=== PATIENT | female | born 1945 | race Caucasian/White ===

== ENCOUNTER 2020-05-17 19:10 | Inpatient (IN) | payer MEDICARE ==
[~2020-05-17] VITALS: Ht 152.4 cm; Wt 43.1 kg
[2020-05-17 21:55] VITALS: BP 163/83
[2020-05-17] MEDS ORDERED: AMLO5TAB9 PO (22:08)
[2020-05-17] MEDS ORDERED: GEMF600T5 PO (22:08)
[2020-05-17] MEDS ORDERED: AMIT50TA3 PO (22:09)
[2020-05-17] MEDS ORDERED: INSU100I30 SQ (22:11)
[2020-05-17] MEDS ORDERED: MAG HYDROX/AL HYDROX/SIMETH 30 ML UDC PO PRN (22:30)
[2020-05-17] MEDS ORDERED: TEMAZEPAM 7.5 MG CAPSULE PO PRN (22:30)
[2020-05-17] MEDS ORDERED: LORAZEPAM 0.5 MG TABLET PO PRN (22:30)
[2020-05-17] MEDS ORDERED: MAGNESIUM HYDROXIDE 30 ML UDC PO PRN (22:30)
[2020-05-17] MEDS ORDERED: ACETAMINOPHEN 325 MG TABLET PO PRN (22:30)
--- NOTE | 2020-05-17 22:30 | NUR ---
GPS RN NOTE: SON NOTIFIED CALLED MCKAYLA AT [phone] & NOTIFIED ABOUT HIS MOTHER WILMER MEI'S ADMISSION TO [facility], [facility] & DISCUSSED ABOUT HER HOME MEDS & VACCINES WITH MCKAYLA.
--- NOTE | 2020-05-17 22:40 | NUR ---
GPS RN NOTE: REFUSED FLU & PNEUMO VACCINE DISCUSSED WITH PT'S SON MCAKYLA IF PT RECEIVED FLU & PNEUMONIA VACCINE RECENTLY OR IN THE PAST, MCKAYLA WAS NOT SURE & STATED SHE MIGHT BE DUE FOR BOTH VACCINES. DISCUSSED WITH THE PATIENT AFTER TALKING TO HER SON, PATIENT WAS NOT SURE IF SHE RECEIVED IT OR NOT IN THE PAST WELL & THEN SHE DECIDED TO CHECK WITH HER PRIMARY DOCTOR & RECEIVE BOTH VACCINES AT HER PRIMARY DOCTOR'S CLINIC ONCE DISCHARGED FROM [facility]. WILL ENDORSE TO THE NURSE IN AM.
[2020-05-17 22:50] VITALS: BP 135/75
[2020-05-17] MEDS ORDERED: hydrALAZINE HCL 25 MG TABLET PO PRN (23:00)
[2020-05-17] MEDS ORDERED: DEXTROSE 50%-WATER 50 ML DISP.SYRIN IV PRN (23:00)
[2020-05-17] MEDS ORDERED: BLOOD SUGAR DIAGNOSTIC 1 EACH STRIP IN ONE (23:00)
--- NOTE | 2020-05-17 23:00 | NUR ---
GPS RN-NOTE: ADMISSION ADMITTED A 74 YR OLD FEMALE, FROM [facility] TO [facility]. PER 5150 HOLD, PATIENT WAS DELUSIONAL, DISORIENTED & REPORTED THAT SHE DOES NOT WANT TO LIVE. PATIENT ALSO BELIEVE PEOPLE IN THE HOUSE DON'T WANT HER TO LIVE & IS POISONING HER BY GIVING HER SWEETS. PT. STATED SHE WANTED TO BANG HER HEAD INTO WALL, PMRT WAS UNABLE TO SAFETY PLAN WITH THE PATIENT. UPON FACE TO FACE ASSESSMENT, PT. IS A & O X 2, CONFUSED, FORGETFUL, DISORIENTED, DISHEVELED, POOR HYGIENE, FLAT AFFECT, PARANOID, DELUSIONAL, PRESSURED SPEECH BUT CLAM & RELAXED. DENIES SI/HI/AVH AT THIS TIME, STATED," LIFE IS A GIFT EVERYDAY." PATIENT STATED THAT HER WANTED TO KILL HER BY POISONING HER & HID NON SKID HER SHOES. REDIRECTABLE AT THIS TIME. ALL NEEDS MET. SKIN ASSESSMENT DONE, PICTURES TAKEN & PLACED IN CHART. CONTINENT. AMBULATORY WITH 1 PERSON ASSIST ONLY, UNSTEADY GAIT, HIGH FALL RISK. PT ORDERED. MED RECON DONE BY DR. CAMPBELL. PT'S RIGHTS HANDBOOK AND A GUIDE TO PRESCRIPTION MEDICATIONS GIVEN. IN NO APPARENT DISTRESS. BELONGINGS WERE INVENTORIED AND CHECKED FOR CONTRABAND. PT. IS UNDER CARE OF PSYCHIATRIC DR. JORDAN AND THE MEDICAL CARE OF DR. WINSTON. BED LOCKED AND PLACED IN LOWEST POSITION TO MAINTAIN SAFETY. BED ALARM ON. FALL PRECAUTIONS IMPLEMENTED. WILL CONTINUE TO MONITOR Q15 MINS. FOR SAFETY AND BEHAVIOR. Addendum: 05/18/20 at 0224 by RENE MARADIAGA RN PATIENT IS UNDER CARE OF DR. CAMPBELL, NOT DR. SLAUGHTER.
[2020-05-17] MEDS: AMLODIPINE BESYLATE 5 MG TABLET PO SCH (23:21)
[2020-05-17] MEDS: BLOOD SUGAR DIAGNOSTIC 1 EACH STRIP IN SCH (23:22)
--- NOTE | 2020-05-17 23:30 | NUR ---
GPS RN NOTE: MD NOTIFIED CHARGE NURSE CALLED DR. CAMPBELL & NOTIFIED ABOUT NEW ADMISSION WILMER MEI IN ROOM 220-1 & REQUESTED MD TO RECONCILE HER HOME MEDS.
[2020-05-17] MEDS: INSULIN REGULAR, HUMAN 100 UNIT/ML 3 ML VIAL SQ PRN (23:33)
--- NOTE | 2020-05-17 23:45 | NUR ---
GPS RN NOTE DR. CAMPBELL RECONCILED PATIENT'S MEDS & PLACED ORDERS FOR AM LABS, CXR & EKG.
--- NOTE | 2020-05-18 02:24 | NUR ---
GPS RN NOTE PATIENT SEEN BY DR. CAMPBELL AT [facility].
--- NOTE | 2020-05-18 06:07 | NUR ---
GPS RN NOTE PATIENT SLEPT WELL AT NIGHT AFTER ADMITTING TO [facility]. COOPERATIVE, CALM, QUIET, ISOLATIVE, NO BEHAVIOR CHANGES NOTED. WILL CONTINUE TO MONITOR.
--- NOTE | 2020-05-18 06:15 | NUR ---
GPS RN NOTE: EKG RESULTED PATIENT'S EKG SHOWS NORMAL SINUS RHYTHM, NOTIFIED DR. CAMPBELL, NO NEW ORDERS AT THIS TIME.
--- NOTE | 2020-05-18 06:30 | NUR ---
CALLED RADIOLOGY FOR STAT CXR, SOFTWARE QUALITY ASSURANCE SPECIALIST ANGEL SAID SOMEONE WILL COME TO DO THE CXR. WILL ENDORSE TO AM RN TO F/U. DR. CAMPBELL WAS NOTIFIED.
[2020-05-18 06:31] LABS: BASOPHILS # (AUTO) 0.1 /CMM (0.0-0.2); BASOPHILS % (AUTO) 1.3 % (0.0-2.0); EOSINOPHILS % (AUTO) 1.2 % (0.0-6.0); HEMATOCRIT 46 % (33-45); HEMOGLOBIN 15.3 g/dL (11.5-14.8); LYMPHOCYTES # (AUTO) 1.8 /CMM (0.8-4.8); LYMPHOCYTES % (AUTO) 22.8 % (20.0-44.0); MEAN CORPUSCULAR HGB CONC 33 g/dl (31.0-36.0); MEAN CORPUSCULAR VOLUME 91 fL (82-100); MONOCYTES # (AUTO) 0.4 /CMM (0.1-1.30); MONOCYTES % (AUTO) 5.3 % (2.0-12.0); NEUTROPHILS # (AUTO) 5.5 /CMM (1.8-8.9); NEUTROPHILS % (AUTO) 69.4 % (43.0-81.0); PLATELET COUNT (AUTO) 431 /CMM (150-450); RED BLOOD CELL COUNT(AUTO) 5.07 MIL/uL (4.0-5.2); WHITE BLOOD COUNT (AUTO) 7.9 K/uL (4.3-11.0)
[2020-05-18 06:56] LABS: CHOLESTEROL 188 mg/dL (<200); HDL CHOLESTEROL 34 mg/dL (40-60); LDL 107 mg/dL (0-99); THYROID STIMULATING HORMONE 0.491 uIU/mL (0.358-3.74); TRIGLYCERIDES 210 mg/dL (30-150)
[2020-05-18 07:00] LABS: ALANINE AMINOTRANSFERASE 19 U/L (12-78); ALBUMIN 3.3 g/dL (3.4-5.0); ALKALINE PHOSPHATASE 93 U/L (46-116); ASPARTATE AMINOTRANSFERASE 16 U/L (15-37); B-TYPE NATRIURETIC PEPTIDE 20 PG/ML (0-125); BILIRUBIN,TOTAL 0.4 mg/dL (0.2-1.0); CALCIUM, SERUM 9.1 mg/dL (8.5-10.1); CARBON DIOXIDE 27 mmol/L (21-32); CHLORIDE 103 mmol/L (98-107); CREATININE 0.7 mg/dL (0.6-1.3); GLUCOSE 249 mg/dL (74-106); MAGNESIUM 2.3 mg/dL (1.8-2.4); PHOSPHORUS 3.4 mg/dL (2.5-4.9); POTASSIUM 3.6 mmol/L (3.5-5.1); SODIUM SERUM 140 mmol/L (136-145); TOTAL PROTEIN, SERUM 7.3 g/dL (6.4-8.2); UREA NITROGEN, BLOOD 17 mg/dL (7-18)
[2020-05-18] MEDS: BLOOD SUGAR DIAGNOSTIC 1 EACH STRIP IN SCH ×4 (07:32→22:51)
[2020-05-18 08:11] VITALS: BP 140/82
[2020-05-18] MEDS: INSULIN REGULAR, HUMAN 100 UNIT/ML 3 ML VIAL SQ PRN ×3 (08:23→22:44)
[2020-05-18] MEDS: AMLODIPINE BESYLATE 5 MG TABLET PO SCH ×2 (08:24→22:43)
[2020-05-18] MEDS: LISINOPRIL (5MG) 5 MG TABLET PO SCH (09:13)
[2020-05-18] MEDS: ASPIRIN EC 81 MG TABLET.DR PO SCH (09:14)
--- NOTE | 2020-05-18 11:30 | NUR ---
Family Contact: DOUG called the pts son, Chuck ([phone]), and informed him about the process of being placed on a hold and the possible events that can take place after. DOUG went over a 14 day hold and then assisted with answering questions about [facility] facility placement and assisted living placements. DOUG stated that for this pt that a SNF would be the recommendation before assisted living. Pts son stated that he would like to have placement in [place] is possible so DOUG recommended [facility] [place]. DOUG stated that DOUG will follow up.
--- NOTE | 2020-05-18 12:08 | NUR ---
Initial Discharge Plan: Pt currently resides in her home with her located at [address] [place] [address]. Per pts son, Chuck ([phone]), pt cannot reside back in the home and needs SNF placement. SW will work with the pt, pts son, and the MD regarding appropriate discharge planning. SW will form a safe and proper discharge.
[2020-05-18 16:00] VITALS: BP 139/82
[2020-05-18 19:58] VITALS: BP 128/62
[2020-05-18 21:08] LABS: APPEARANCE,URINE CLEAR (CLEAR); BILIRUBIN,URINE NEGATIVE (NEGATIVE); BLOOD, URINE NEGATIVE Ery/uL (NEGATIVE); COLOR,URINE YELLOW (YELLOW); LEUKOCYTE ESTERASE ,URINE NEGATIVE (NEGATIVE); NITRITE, URINE NEGATIVE (NEGATIVE); PROTEIN,URINE NEGATIVE (NEGATIVE); UGLUCOSE >=1000 mg/dL (NEGATIVE); UROBILINOGEN,URINE 0.2 EU/dL (0.2)
[2020-05-18] MEDS ORDERED: INSULIN GLARGINE, 100 UNIT/ML CARTRIDGE SQ SCH (22:00)
--- NOTE | 2020-05-18 22:05 | NUR ---
GPS/RN DR. JORDAN WAS AT BEDSIDE TALKING TO THE PATIENT.
[2020-05-18] MEDS: ATORVASTATIN 10 MG TABLET PO SCH (22:42)
[2020-05-18] MEDS: INSULIN GLARGINE, 100 UNIT/ML CARTRIDGE SQ SCH (22:48)
--- NOTE | 2020-05-18 23:00 | NUR ---
GPS/RN SNACK WAS GIVEN.
[2020-05-19] MEDS: BLOOD SUGAR DIAGNOSTIC 1 EACH STRIP IN SCH ×4 (07:46→22:21)
[2020-05-19 08:00] VITALS: BP 137/81
[2020-05-19] MEDS: risperiDONE 0.25 MG TABLET PO SCH ×2 (09:06→17:03)
[2020-05-19] MEDS: AMLODIPINE BESYLATE 5 MG TABLET PO SCH ×2 (09:07→21:37)
[2020-05-19] MEDS: ASPIRIN EC 81 MG TABLET.DR PO SCH (09:07)
[2020-05-19] MEDS: LISINOPRIL (5MG) 5 MG TABLET PO SCH (09:07)
[2020-05-19] MEDS: INSULIN REGULAR, HUMAN 100 UNIT/ML 3 ML VIAL SQ PRN ×4 (09:12→22:34)
[2020-05-19 16:00] VITALS: BP 116/64
[2020-05-19 21:03] VITALS: BP 119/82
[2020-05-19] MEDS: ATORVASTATIN 10 MG TABLET PO SCH (21:36)
[2020-05-19] MEDS: INSULIN GLARGINE, 100 UNIT/ML CARTRIDGE SQ SCH (22:33)
--- NOTE | 2020-05-20 07:04 | NUR ---
GPS RN CLOSING NOTES: PT LAYING ON BED AWAKE AND ALERT. SLEPT 9HR THIS SHIFT. MED COMPLIANT THIS, NO BEHAVIORAL ISSUES. NO S/S OF DISTRESS. RESPIRATION EVEN AND UNLABORED WITH EQUAL RISE AND FALL OF THE CHEST ON ROOM AIR. ALL PT CARE NEEDS MET ANTICIPATED. BED IS LOCKED AND IN LOWEST POSITION. WILL CONTINUE TO MONITOR AND ENDORSE TO AM SHIFT.
[2020-05-20] MEDS: BLOOD SUGAR DIAGNOSTIC 1 EACH STRIP IN SCH ×4 (07:39→22:25)
[2020-05-20] MEDS: INSULIN REGULAR, HUMAN 100 UNIT/ML 3 ML VIAL SQ PRN ×4 (07:42→22:35)
[2020-05-20 08:00] VITALS: BP 141/80
[2020-05-20] MEDS: risperiDONE 0.25 MG TABLET PO SCH ×2 (09:04→16:52)
[2020-05-20] MEDS: ASPIRIN EC 81 MG TABLET.DR PO SCH (09:05)
[2020-05-20] MEDS: AMLODIPINE BESYLATE 5 MG TABLET PO SCH ×2 (09:05→21:42)
[2020-05-20] MEDS: LISINOPRIL (5MG) 5 MG TABLET PO SCH (09:05)
[2020-05-20 16:00] VITALS: BP 130/77
[2020-05-20 20:26] VITALS: BP 129/76
[2020-05-20] MEDS: ATORVASTATIN 10 MG TABLET PO SCH (21:43)
[2020-05-20] MEDS: INSULIN GLARGINE, 100 UNIT/ML CARTRIDGE SQ SCH (22:34)
--- NOTE | 2020-05-21 06:25 | NUR ---
GPS RN CLOSING NOTES: PT LAYING ON BED AWAKE A/O X2. WEEKLY SKIN ASSESSMENT DONE, PICTURES TAKEN PLACED IN PATIENT CHART. PT WAS MED COMPLIANT THIS SHIFT. SLEPT 9HR THIS SHIFT. NO S/S OF DISTRESS. RESPIRATION EVEN AND UNLABORED WITH EQUAL RISE AND FALL OF THE CHEST ON ROOM AIR. ALL PT CARE NEEDS MET ANTICIPATED. BED IS LOCKED AND IN LOWEST POSITION. WILL CONTINUE TO MONITOR AND ENDORSE TO AM SHIFT.
[2020-05-21] MEDS: BLOOD SUGAR DIAGNOSTIC 1 EACH STRIP IN SCH (07:29)
[2020-05-21 08:00] VITALS: BP 147/85
[2020-05-21] MEDS: ASPIRIN EC 81 MG TABLET.DR PO SCH (08:11)
[2020-05-21] MEDS: risperiDONE 0.25 MG TABLET PO SCH ×2 (08:11→16:21)
[2020-05-21] MEDS: AMLODIPINE BESYLATE 5 MG TABLET PO SCH ×2 (08:11→20:08)
[2020-05-21] MEDS: LISINOPRIL (5MG) 5 MG TABLET PO SCH (08:11)
--- NOTE | 2020-05-21 09:05 | NUR ---
DOUG Coordination of Care: This senior mortgage underwriter sent clinicals to admin Agapito (F:[phone]) to [facility] for review.
[2020-05-21] MEDS ORDERED: DEXTROSE 50%-WATER 50 ML DISP.SYRIN IV PRN (11:00)
[2020-05-21] MEDS: INSULIN REGULAR, HUMAN 100 UNIT/ML 3 ML VIAL SQ PRN ×2 (11:34→16:43)
[2020-05-21] MEDS: GLUCERNA SHAKE 237 ML CAN PO SCH (11:35)
[2020-05-21] MEDS: BLOOD SUGAR DIAGNOSTIC 1 EACH STRIP VI SCH ×3 (11:35→22:05)
--- NOTE | 2020-05-21 13:01 | NUR ---
DOUG Initial Discharge Plan: This telegraphic typewriter operator sent clinicals to admin Adia (F:[phone]) from [facility] stated they will accept pt.
--- NOTE | 2020-05-21 15:05 | NUR ---
Individual Intervention: This tag writer met with pt for brief counseling. Pt appeared alert and oriented x2. Pt appeared with euthymic mood. Pt appeared paranoid and delusional. She stated upon admission, pt's "wanted to kill her". Pt is fixated on her wanting to kill her. This tag writer redirected pt and helped pt display a calmer demeanor. This tag writer oriented pt back to reality.
[2020-05-21 16:00] VITALS: BP 146/81
[2020-05-21 20:05] VITALS: BP 120/71
[2020-05-21] MEDS: ATORVASTATIN 10 MG TABLET PO SCH (21:58)
[2020-05-21] MEDS: INSULIN GLARGINE, 100 UNIT/ML CARTRIDGE SQ SCH (22:03)
[2020-05-21] MEDS: *INSULIN REGULAR(HUMULIN R)HUM 100 UNIT/ML VIAL SQ PRN (22:13)
--- NOTE | 2020-05-22 07:30 | NUR ---
GPS RN NOTE PATIENT IN BED RESTING COMFORTABLY. PATIENT IN NO ACUTE DISTRESS. NO SOB NOTED. PATIENT BREATHING IS EVEN AND UNLABORED. SAFETY PRECAUTIONS IN PLACE. PATIENT BED IS LOCKED AND IN LOWEST POSITION. BED ALARM IS ON. WILL CONTINUE TO MONITOR.
[2020-05-22] MEDS: BLOOD SUGAR DIAGNOSTIC 1 EACH STRIP VI SCH ×4 (07:45→21:33)
[2020-05-22 08:00] VITALS: BP 150/78
[2020-05-22] MEDS: ASPIRIN EC 81 MG TABLET.DR PO SCH (08:32)
[2020-05-22] MEDS: INSULIN REGULAR, HUMAN 100 UNIT/ML 3 ML VIAL SQ PRN ×3 (08:32→16:36)
[2020-05-22] MEDS: risperiDONE 0.25 MG TABLET PO SCH ×2 (08:33→16:34)
[2020-05-22] MEDS: AMLODIPINE BESYLATE 5 MG TABLET PO SCH ×2 (08:33→21:27)
[2020-05-22] MEDS: LISINOPRIL (5MG) 5 MG TABLET PO SCH (08:33)
[2020-05-22] MEDS: GLUCERNA SHAKE 237 ML CAN PO SCH (08:37)
--- NOTE | 2020-05-22 12:07 | NUR ---
DOUG Family Contact: DOUG called the pts son, Chuck ([phone]) and stated pt is accepted at [facility]. He is aware and agreeable with facility.
--- NOTE | 2020-05-22 12:18 | NUR ---
PROBABLE CAUSE HEARING: Patient probable cause hearing was today and it was upheld for grave disability.
[2020-05-22 16:00] VITALS: BP 134/62
--- NOTE | 2020-05-22 18:21 | NUR ---
GPS RN NOTE PATIENT IN BED RESTING COMFORTABLY. PATIENT IN NO ACUTE DISTRESS. NO SOB NOTED. PATIENT BREATHING IS EVEN AND UNLABORED. SAFETY PRECAUTIONS IN PLACE. EXPLAINED ALL DUE MEDS. PATIENT KEPT CLEAN, DRY, AND COMFORTABLE THROUGHOUT SHIFT. PATIENT BED IS LOCKED AND IN LOWEST POSITION. BED ALARM IS ON. WILL ENDORSE CARE TO PM SHIFT FOR BALTAZAR.
[2020-05-22 20:15] VITALS: BP 144/64
[2020-05-22] MEDS: ATORVASTATIN 10 MG TABLET PO SCH (21:28)
[2020-05-22] MEDS: INSULIN GLARGINE, 100 UNIT/ML CARTRIDGE SQ SCH (21:44)
[2020-05-22] MEDS: *INSULIN REGULAR(HUMULIN R)HUM 100 UNIT/ML VIAL SQ PRN (21:44)
[2020-05-23 08:00] VITALS: BP 159/91
[2020-05-23] MEDS: BLOOD SUGAR DIAGNOSTIC 1 EACH STRIP VI SCH ×4 (08:35→22:14)
[2020-05-23] MEDS: ASPIRIN EC 81 MG TABLET.DR PO SCH (09:14)
[2020-05-23] MEDS: GLUCERNA SHAKE 237 ML CAN PO SCH (09:14)
[2020-05-23] MEDS: LISINOPRIL (5MG) 5 MG TABLET PO SCH (09:14)
[2020-05-23] MEDS: AMLODIPINE BESYLATE 5 MG TABLET PO SCH ×2 (09:14→21:11)
[2020-05-23] MEDS: risperiDONE 0.25 MG TABLET PO SCH ×2 (09:14→17:02)
[2020-05-23] MEDS: INSULIN REGULAR, HUMAN 100 UNIT/ML 3 ML VIAL SQ PRN ×3 (09:18→17:08)
[2020-05-23 16:00] VITALS: BP 134/61
--- NOTE | 2020-05-23 18:09 | NUR ---
GPS RN NOTES PT RESTING IN BED AT THIS TIME. PT REMAINED STABLE THROUGHOUT SHIFT. PT KEPT CLEAN AND DRY. ALL CARE, NEEDS, MEDICATIONS AND TREATMENT ADMINISTERED ANTICIPATED PER ORDER. SAFETY PRECAUTIONS IN PLACE AND MAINTAINED AT ALL TIMES. BED IN LOWEST LOCKED POSITION, HOB ELEVATED, SIDE RAILS UP X 2, CALL LIGHT WITHIN REACH.
[2020-05-23 19:56] VITALS: BP 120/56
[2020-05-23] MEDS: ATORVASTATIN 10 MG TABLET PO SCH (21:11)
[2020-05-23] MEDS: INSULIN GLARGINE, 100 UNIT/ML CARTRIDGE SQ SCH (22:15)
[2020-05-23] MEDS: *INSULIN REGULAR(HUMULIN R)HUM 100 UNIT/ML VIAL SQ PRN (22:55)
--- NOTE | 2020-05-24 06:32 | NUR ---
GPS RN NOTES: PT. RESTING IN HER ROOM, PT. REMAINED STABLE THROUGHOUT SHIFT ,CALM COOPERTIVE NOTED AT THIS TIME . NO S/S OF DISTRESS NOTED ,NO CHANGE OF CONDITION NOTED , ALL CARE NEEDS MET ANTICIPATED. MED COMPLIANT ,NO BEHAVIOR PROBLEMS NOTED ,WILL CONTINUE TO MONITOR FOR SAFETY BEHAVIOR, AND ENDORSE TO AM SHIFT FOR CONTINUITY OF CARE.
[2020-05-24 08:00] VITALS: BP 126/73
[2020-05-24] MEDS: BLOOD SUGAR DIAGNOSTIC 1 EACH STRIP VI SCH ×4 (08:05→21:26)
[2020-05-24] MEDS: AMLODIPINE BESYLATE 5 MG TABLET PO SCH ×2 (08:36→21:06)
[2020-05-24] MEDS: ASPIRIN EC 81 MG TABLET.DR PO SCH (08:36)
[2020-05-24] MEDS: LISINOPRIL (5MG) 5 MG TABLET PO SCH (08:36)
[2020-05-24] MEDS: GLUCERNA SHAKE 237 ML CAN PO SCH (08:37)
[2020-05-24] MEDS: risperiDONE 0.25 MG TABLET PO SCH ×2 (08:37→16:26)
[2020-05-24] MEDS: INSULIN REGULAR, HUMAN 100 UNIT/ML 3 ML VIAL SQ PRN ×4 (09:17→22:35)
--- NOTE | 2020-05-24 10:51 | NUR ---
GPS/RN-NOTES OFFERED FLU VACCINE AND PNA VACCINE, PATIENT STATED '' I DON'T WANT IT, I NEVER TAKE ANY VACCINE IN MY LIFE". EXPLAINED RISK AND BENEFITS STILL REFUSED.
--- NOTE | 2020-05-24 11:20 | NUR ---
DOUG Coordination of Care: This press writer contacted Rosa sawant ([phone]) and stated will be ready for dc on 05/28. She is aware and has a bed available for pt.
[2020-05-24 16:00] VITALS: BP 146/73
[2020-05-24 19:46] VITALS: BP 136/73
[2020-05-24] MEDS: ATORVASTATIN 10 MG TABLET PO SCH (21:06)
[2020-05-24] MEDS: INSULIN GLARGINE, 100 UNIT/ML CARTRIDGE SQ SCH (21:26)
[2020-05-25] MEDS: BLOOD SUGAR DIAGNOSTIC 1 EACH STRIP VI SCH ×4 (07:47→21:47)
[2020-05-25 08:00] VITALS: BP_SYST 117; BP_SYST 145; BP_DIAS 76; BP_DIAS 77
[2020-05-25] MEDS: risperiDONE 0.25 MG TABLET PO SCH ×2 (08:23→16:41)
[2020-05-25] MEDS: ASPIRIN EC 81 MG TABLET.DR PO SCH (08:23)
[2020-05-25] MEDS: GLUCERNA SHAKE 237 ML CAN PO SCH (08:24)
[2020-05-25] MEDS: LISINOPRIL (5MG) 5 MG TABLET PO SCH (08:24)
[2020-05-25] MEDS: AMLODIPINE BESYLATE 5 MG TABLET PO SCH ×2 (08:24→21:06)
[2020-05-25] MEDS: INSULIN REGULAR, HUMAN 100 UNIT/ML 3 ML VIAL SQ PRN ×3 (09:02→17:17)
--- NOTE | 2020-05-25 11:09 | NUR ---
DOUG Family Contact: This science writer contacted Chuck saba ([phone]) and notified pt will be discharged 05/29 to [facility].
[2020-05-25 20:42] VITALS: BP 111/61
[2020-05-25] MEDS: ATORVASTATIN 10 MG TABLET PO SCH (21:06)
[2020-05-25] MEDS: INSULIN GLARGINE, 100 UNIT/ML CARTRIDGE SQ SCH (21:48)
[2020-05-25] MEDS: *INSULIN REGULAR(HUMULIN R)HUM 100 UNIT/ML VIAL SQ PRN (22:25)
--- NOTE | 2020-05-25 22:28 | NUR ---
RN NOTES: PT. REFUSED LANTUS , PT. STATED I AM OKAY , I DONT HAVE BLOOD SUGAR PROBLEM, I DONT NEED TOO MUCH INSULIN , PT. AGREED TO TAKE SLIDING SCALE INSULIN, BUT CONTINUED TO REFUSE LANTUS ENCOURAGED X3 DESPITE OF RISK AND BENEFITS EXPLANATIONS, PT. STRONGLY REFUSED, PT. BEHAVIOR UNCOOPERATIVE, PARANOID, DELUSIONAL, AT THIS TIME,WILL CONTINUITY WITH CARE.
--- NOTE | 2020-05-26 06:17 | NUR ---
GPS RN NOTES: PT. RESTING IN Her ROOM, PT.REMAINED STABLE THROUGHOUT SHIFT, NO S/S OF DISTRESS NOTED , ALL CARE NEEDS MET ANTICIPATED. MED COMPLIANT ,PT. BEHAVIOR ,PARANOID EASILY AGITATED, DELUSIONAL NEEDS FREQUENTLY REDIRECTIONS ,WILL CONTINUE TO MONITOR FOR SAFETY BEHAVIOR, AND ENDORSE TO AM SHIFT FOR CONTINUITY OF CARE. Addendum: 05/26/20 at 0622 by KENISHA BRADY RN GPS RN NOTES: PT. RESTING IN HER ROOM, PT.REMAINED STABLE THROUGHOUT SHIFT, NO S/S OF DISTRESS NOTED , ALL CARE NEEDS MET ANTICIPATED. MED COMPLIANT ,PT. BEHAVIOR ,PARANOID EASILY AGITATED, DELUSIONAL NEEDS FREQUENTLY REDIRECTIONS ,WILL CONTINUE TO MONITOR FOR SAFETY BEHAVIOR, AND ENDORSE TO AM SHIFT FOR CONTINUITY OF CARE.
[2020-05-26] MEDS: BLOOD SUGAR DIAGNOSTIC 1 EACH STRIP VI SCH ×4 (07:28→21:37)
[2020-05-26] MEDS: INSULIN REGULAR, HUMAN 100 UNIT/ML 3 ML VIAL SQ PRN ×3 (07:32→16:54)
[2020-05-26 08:00] VITALS: BP 159/77
[2020-05-26] MEDS: GLUCERNA SHAKE 237 ML CAN PO SCH (08:22)
[2020-05-26] MEDS: risperiDONE 0.25 MG TABLET PO SCH ×2 (08:23→16:58)
[2020-05-26] MEDS: AMLODIPINE BESYLATE 5 MG TABLET PO SCH ×2 (08:23→21:28)
[2020-05-26] MEDS: LISINOPRIL (5MG) 5 MG TABLET PO SCH (08:23)
[2020-05-26] MEDS: ASPIRIN EC 81 MG TABLET.DR PO SCH (08:23)
--- NOTE | 2020-05-26 09:00 | NUR ---
RN NOTE-PT IS ALERT, ORIENTED TO PERSON, CONFUSED. CALM. PASSIVE. DIRECTABLE. PO INTAKE FAIR. MED COMPLIANT. USES BATHROOM WITH ASSIST. UNSTEADY GAIT. DENIES SI/HI/AH/ VH. NO BEHAVIORAL ISSUES.
[2020-05-26 16:00] VITALS: BP 125/65
[2020-05-26 20:24] VITALS: BP 148/79
[2020-05-26] MEDS: ATORVASTATIN 10 MG TABLET PO SCH (21:28)
[2020-05-26] MEDS: INSULIN GLARGINE, 100 UNIT/ML CARTRIDGE SQ SCH (21:31)
[2020-05-26] MEDS: *INSULIN REGULAR(HUMULIN R)HUM 100 UNIT/ML VIAL SQ PRN (21:32)
[2020-05-27] MEDS: BLOOD SUGAR DIAGNOSTIC 1 EACH STRIP VI SCH ×4 (07:23→21:12)
[2020-05-27 08:00] VITALS: BP 157/81
[2020-05-27] MEDS: INSULIN REGULAR, HUMAN 100 UNIT/ML 3 ML VIAL SQ PRN ×2 (08:08→12:03)
[2020-05-27] MEDS: GLUCERNA SHAKE 237 ML CAN PO SCH (08:12)
[2020-05-27] MEDS: ASPIRIN EC 81 MG TABLET.DR PO SCH (08:12)
[2020-05-27] MEDS: risperiDONE 0.25 MG TABLET PO SCH ×2 (08:12→17:51)
[2020-05-27] MEDS: AMLODIPINE BESYLATE 5 MG TABLET PO SCH ×2 (08:13→21:01)
[2020-05-27] MEDS: LISINOPRIL (5MG) 5 MG TABLET PO SCH (08:13)
[2020-05-27 16:00] VITALS: BP 137/75
[2020-05-27 19:56] VITALS: BP 132/75
[2020-05-27] MEDS: ATORVASTATIN 10 MG TABLET PO SCH (21:01)
[2020-05-27] MEDS: INSULIN GLARGINE, 100 UNIT/ML CARTRIDGE SQ SCH (21:31)
[2020-05-27] MEDS: *INSULIN REGULAR(HUMULIN R)HUM 100 UNIT/ML VIAL SQ PRN (21:33)
[2020-05-28 07:13] LABS: BASOPHILS % (AUTO) 0.4 % (0.0-2.0); EOSINOPHILS % (AUTO) 1.6 % (0.0-6.0); HEMATOCRIT 43 % (33-45); HEMOGLOBIN 14.3 g/dL (11.5-14.8); LYMPHOCYTES # (AUTO) 1.8 /CMM (0.8-4.8); LYMPHOCYTES % (AUTO) 27.2 % (20.0-44.0); MEAN CORPUSCULAR HGB CONC 33 g/dl (31.0-36.0); MEAN CORPUSCULAR VOLUME 92 fL (82-100); MONOCYTES # (AUTO) 0.6 /CMM (0.1-1.30); MONOCYTES % (AUTO) 8.5 % (2.0-12.0); NEUTROPHILS # (AUTO) 4.1 /CMM (1.8-8.9); NEUTROPHILS % (AUTO) 62.3 % (43.0-81.0); PLATELET COUNT (AUTO) 447 /CMM (150-450); RED BLOOD CELL COUNT(AUTO) 4.69 MIL/uL (4.0-5.2); WHITE BLOOD COUNT (AUTO) 6.6 K/uL (4.3-11.0)
[2020-05-28] MEDS: BLOOD SUGAR DIAGNOSTIC 1 EACH STRIP VI SCH ×4 (07:30→21:24)
[2020-05-28] MEDS: *INSULIN REGULAR(HUMULIN R)HUM 100 UNIT/ML VIAL SQ PRN ×2 (07:34→21:26)
[2020-05-28 08:00] VITALS: BP 142/78
[2020-05-28 08:28] LABS: CALCIUM, SERUM 9.2 mg/dL (8.5-10.1); CREATININE 0.6 mg/dL (0.6-1.3); MAGNESIUM 2.6 mg/dL (1.8-2.4); PHOSPHORUS 3.9 mg/dL (2.5-4.9); POTASSIUM 4.3 mmol/L (3.5-5.1)
[2020-05-28] MEDS: AMLODIPINE BESYLATE 5 MG TABLET PO SCH ×2 (08:30→20:11)
[2020-05-28] MEDS: ASPIRIN EC 81 MG TABLET.DR PO SCH (08:30)
[2020-05-28] MEDS: GLUCERNA SHAKE 237 ML CAN PO SCH (08:31)
[2020-05-28] MEDS: LISINOPRIL (5MG) 5 MG TABLET PO SCH (08:31)
[2020-05-28] MEDS: risperiDONE 0.25 MG TABLET PO SCH ×2 (08:31→17:00)
--- NOTE | 2020-05-28 10:39 | NUR ---
SNF Contact: SW contacted Rosa sawant ([phone]) from [facility] and inquired about the pts room number and the pts aftercare psychiatrist and aircraft cleaner info. Sirena provided the SW with the necessary information and the SW stated that the pt will be discharged around 11am.
--- NOTE | 2020-05-28 10:47 | NUR ---
Family Contact: SW contacted pts son, Chuck ([phone]), and left a voicemail stating that the pt was going to be discharged to [facility] the following day at 11AM.
[2020-05-28] MEDS: INSULIN REGULAR, HUMAN 100 UNIT/ML 3 ML VIAL SQ PRN ×2 (11:54→16:46)
[2020-05-28 16:00] VITALS: BP 121/71
[2020-05-28 20:00] VITALS: BP 129/75
[2020-05-28] MEDS: ATORVASTATIN 10 MG TABLET PO SCH (21:23)
[2020-05-28] MEDS ORDERED: INSULIN GLARGINE, 100 UNIT/ML CARTRIDGE SQ SCH (22:00)
[2020-05-29] MEDS: BLOOD SUGAR DIAGNOSTIC 1 EACH STRIP VI SCH (06:30)
[2020-05-29] MEDS: INSULIN REGULAR, HUMAN 100 UNIT/ML 3 ML VIAL SQ PRN (06:32)
[2020-05-29 08:00] VITALS: BP 102/73
[2020-05-29] MEDS: risperiDONE 0.25 MG TABLET PO SCH (08:23)
[2020-05-29] MEDS: GLUCERNA SHAKE 237 ML CAN PO SCH (08:23)
[2020-05-29 08:24] VITALS: BP 124/86
[2020-05-29] MEDS: ASPIRIN EC 81 MG TABLET.DR PO SCH (08:24)
[2020-05-29] MEDS: AMLODIPINE BESYLATE 5 MG TABLET PO SCH (08:24)
[2020-05-29] MEDS: LISINOPRIL (5MG) 5 MG TABLET PO SCH (08:24)
--- NOTE | 2020-05-29 08:50 | NUR ---
Discharge Note: Pt was discharged to [facility] located [address] [place] [address] in Rm 42[address]. Pt was transported via [facility] (Trip #[id number]) at 11AM. Pts son, Chuck ([phone]), was made aware of the discharge. Upon discharge, the pt appeared to be in a euthymic mood and presented with a calm affect. Pt appeared to be alert and oriented x4 (time, place, self and situation). Pt appeared to be well groomed and appropriately dressed. Pt denied having any suicidal or homicidal ideation and stated that she does not have any auditory or visual hallucinations. Pt will be under the care of her psychiatrist, Dr. Ley, located at [address], [address] and her proofsheet corrector, Dr. Chano Headley, located at [address] [facility] [address], [place] [address]; . Pt signed the Choice of Vendor form and the multidisciplinary exit care form was done, printed, signed, and given to the patient.
--- NOTE | 2020-05-29 12:10 | NUR ---
[employer] REP NOTE: 74 YEAR OLD FEMALE DISCHARGED TO [facility] IN STABLE CONDITION. PT IS COMPLIANT WITH MEDICATIONS, COOPERATIVE WITH TREATMENT PLANS. PATIENT DENIES SI/HI AND INSTRUCTED TO GO TO THE NEAREST ER, CALL 911 OR LET A FACILITY MEMBER KNOW IF SI/HI DEVELOPS. BEHAVIOR IMPROVED, PSYCHIATRIC TREATMENT PLANS MET. MEDICAL TREATMENT PLANS TO CONTINUE. EDUCATED PATIENT ABOUT AFTER CARE PLAN AND COPY PROVIDED. PERSONAL BELONGINGS RETURNED TO PATIENT. MEDICATIONS RECONCILED WITH DR. JORDAN AND CATIE DENT. REPORT GIVEN TO CHERRI LAWRENCE FOR CONTINUITY OF CARE. PATIENT SIGNED DISCHARGE PAPERWORK. SKIN INTACT ON ADMIT AND DISCHARGE. PT ID BAND REMOVED. PATIENT LEFT THE UNIT VIA GURNEY WITH EMS PRESENT AT 1210
== END 2020-05-29 12:10 | DRG 885 ==
LOC: GPS 21:34 → EDBD 21:34 → GPS 05-18 15:32
PROVIDERS: ADMIT Psychiatry & Neurology Psychiatry; ATTEND Internal Medicine
DX: F29 Unspecified psychosis not due to a substance or known physiological condition (principal); F01.50 Vascular dementia, unspecified severity, without behavioral disturbance, psychotic disturbance, mood disturbance, and anxiety; E11.65 Type 2 diabetes mellitus with hyperglycemia; F23 Brief psychotic disorder; F32.3 Major depressive disorder, single episode, severe with psychotic features; F41.9 Anxiety disorder, unspecified; E78.5 Hyperlipidemia, unspecified; I10 Essential (primary) hypertension; Z79.4 Long term (current) use of insulin; R62.7 Adult failure to thrive; Z86.73 Personal history of transient ischemic attack (TIA), and cerebral infarction without residual deficits; Z91.5 Personal history of self-harm; Z73.6 Limitation of activities due to disability
CPT/HCPCS: 36415; 71045-TC; 80048-TC; 80053-TC; 80061-TC; 81000-TC; 82962-TC; 83735-TC; 83880; 84100-TC; 84443-TC; 84484-TC; 85025-TC; 85730-TC; 87081-TC; 97112-TC; 97116-TC; 97530-TC; J1815